=== PATIENT | female | born 1985 | race American Indian/Alaskan Native ===

== ENCOUNTER 2018-12-17 06:13 | Emergency (ER) | payer OTHER ==
[2018-12-17 07:52] LABS: Basophils # (Auto) 0.1 K/mm3 (0.0-0.1); Eosinophils # (Auto) 0.1 K/mm3 (0.0-0.4); Eosinophils % (Auto) 1.6 % (0.0-4.3); Hematocrit 35.7 % (30.3-42.9); Hemoglobin 12.1 gm/dl (10.1-14.3); Lymphocytes # (Auto) 2.1 K/mm3 (1.2-5.4); Lymphocytes % (Auto) 23.4 % (13.4-35.0); Mean Corpuscular HGB Conc 34 % (30-34); Mean Corpuscular Volume 80 fl (79-97); Monocytes % (Auto) 11.3 % (0.0-7.3); Platelet Count 206 K/mm3 (140-440); Red Blood Count 4.47 M/mm3 (3.65-5.03); Red Cell Distribution Width 15.7 % (13.2-15.2)
--- NOTE | 2018-12-17 08:12 | Emergency Department Report ---
ED Female HPI - General Chief complaint: Vaginal Bleeding Stated complaint: VAG BLEEDIMG Time Seen by Provider: 12/17/18 07:50 Source: patient Mode of arrival: Ambulatory Limitations: No Limitations - History of Present Illness Initial comments: 33-year-old female presents to the ED with complaint of vaginal bleeding. Patient states bleeding began approximately 2-3 weeks ago, and has become worse over the last 2-3 days. Patient states she had an ultrasound 6 months ago ordered by her litigation coordinator for painful periods which was normal, states she was told it did not show any evidence of fibroids or endometriosis. Patient states she began having irregular periods approximately 4 months ago. MD Complaint: vaginal bleeding -: week(s) (3) Location: suprapubic Severity: moderate Quality: cramping Consistency: intermittent Improves with: none Worsens with: none Associated Symptoms: vaginal bleeding, abdominal pain. denies: syncope - Related Data Home Medications Medication Instructions Recorded Confirmed Last Taken Biotin 1 mg PO 03/15/15 03/15/15 Unknown Ferrous Sulfate [Feosol] 325 mg PO 03/15/15 03/15/15 Unknown Multivitamin [Animal Shapes] 03/15/15 03/15/15 Unknown Previous Rx's Medication Instructions Recorded Last Taken Type Acetaminophen/Codeine [Tylenol #3] 1 tab PO Q6H PRN #12 tab 03/15/15 Unknown Rx Cyclobenzaprine [Flexeril 10mg] 10 mg PO TID PRN #15 tablet 03/15/15 Unknown Rx Ibuprofen [Motrin 600 MG tab] 600 mg PO Q8H PRN #30 tablet 03/15/15 Unknown Rx medroxyPROGESTERone ACETATE 10 mg PO QDAY #7 tablet 12/17/18 Unknown Rx [Provera] Allergies Allergy/AdvReac Type Severity Reaction Status Date / Time No Known Allergies Allergy Unverified 03/15/15 22:48 ED Review of Systems ROS: Stated complaint: VAG BLEEDIMG Other details as noted in HPI Comment: All other systems reviewed and negative Gastrointestinal: abdominal pain Genitourinary: abnormal menses ED Past Medical Hx - Past Medical History Previous Medical History?: No - Surgical History Past Surgical History?: No - Social History Smoking Status: Never Smoker Substance Use Type: None - Medications Home Medications: Home Medications Medication Instructions Recorded Confirmed Last Taken Type Acetaminophen/Codeine [Tylenol #3] 1 tab PO Q6H PRN #12 tab 03/15/15 Unknown Rx Biotin 1 mg PO 03/15/15 03/15/15 Unknown History Cyclobenzaprine [Flexeril 10mg] 10 mg PO TID PRN #15 tablet 03/15/15 Unknown Rx Ferrous Sulfate [Feosol] 325 mg PO 03/15/15 03/15/15 Unknown History Ibuprofen [Motrin 600 MG tab] 600 mg PO Q8H PRN #30 tablet 03/15/15 Unknown Rx Multivitamin [Animal Shapes] 03/15/15 03/15/15 Unknown History medroxyPROGESTERone ACETATE 10 mg PO QDAY #7 tablet 12/17/18 Unknown Rx [Provera] ED Physical Exam - General Limitations: No Limitations General appearance: alert, in no apparent distress - Head Head exam: Present: atraumatic, normocephalic - Eye Eye exam: Present: normal appearance - ENT ENT exam: Present: mucous membranes moist - Neck Neck exam: Present: normal inspection - Respiratory Respiratory exam: Present: normal lung sounds bilaterally. Absent: respiratory distress - Cardiovascular Cardiovascular Exam: Present: regular rate, normal rhythm - GI/Abdominal GI/Abdominal exam: Present: soft, tenderness (suprapubic). Absent: distended - External exam: Present: normal external exam Speculum exam: Present: vaginal bleeding (moderate bleeding, slight pooling in speculum) - Extremities Exam Extremities exam: Present: normal inspection - Neurological Exam Neurological exam: Present: alert, oriented X3 - Psychiatric Psychiatric exam: Present: normal affect, normal mood - Skin Skin exam: Present: warm, dry, intact, normal color ED Course Vital Signs 12/17/18 12/17/18 07:49 08:52 Temperature 98.0 F Pulse Rate 72 Respiratory 16 Rate Blood Pressure 117/72 [Right] O2 Sat by Pulse 99 99 Oximetry ED Medical Decision Making - Lab Data Result diagrams: 12/17/18 07:33 - Medical Decision Making 33-year-old female with dysfunctional uterine bleeding 3 weeks. Hemoglobin currently 12.1. Vital signs normal. Patient recently had ultrasound and June 2018 that was reportedly negative. On exam patient has moderate vaginal bleeding present, no clots. Patient denies tobacco use, so Provera prescription given. Advised outpatient follow-up with her [facility]. - Differential Diagnosis fibroids, anemia, DUB, ectopic Critical care attestation.: If time is entered above; I have spent that time in minutes in the direct care of this critically ill patient, excluding procedure time. ED Disposition Clinical Impression: Dysfunctional uterine bleeding Disposition: TO HOME OR SELFCARE Is pt being admited?: No Condition: Stable Instructions: Dysfunctional Uterine Bleeding (ED) Prescriptions: medroxyPROGESTERone ACETATE [Provera] 10 mg PO QDAY #7 tablet Referrals: PRIMARY CARE [Primary Care Provider] - 3-5 Days [facility] [Provider Group] - 3-5 Days Time of Disposition: 08:43
[2018-12-17 08:18] LABS: Bilirubin,Urine NEG (Negative); Blood,Urine LG (Negative); Color,Urine Red (Yellow); Mucus,Urine FEW /HPF; Urobilinogen,Urine < 2.0 mg/dL (<2.0)
[2018-12-17 08:19] LABS: RBC,Urine > 182.0 /HPF (0.0-6.0); WBC,Urine > 182.0 /HPF (0.0-6.0)
[2018-12-17 08:53] VITALS: BP 117/72
== END 2018-12-17 08:53 | disposition home or self-care (01) ==
LOC: ED 06:13
DX: N93.8 Other specified abnormal uterine and vaginal bleeding (principal)
CPT/HCPCS: 36415; 81001; 84702; 85025; 86850; 86900; 86901; 99283